=== PATIENT | male | born 1975 | race Caucasian/White ===

== ENCOUNTER 2018-01-19 07:19 | Emergency (ER) | payer OTHER ==
[~2018-01-19] VITALS: Ht 175.3 cm; Wt 90.9 kg
[2018-01-19] MEDS ORDERED: ATIVAN0.5 MG PO (07:29)
[2018-01-19] MEDS ORDERED: ADVIL 200MG TA200 MG PO (07:29)
[2018-01-19 08:07] LABS: EOS # 0.3 (0.04-0.40); EOS % 4.9 % (0.0-4.0); LYMPH# 1.6 (1.50-4.00); MEAN CELL VOLUME 89 fl (78-100); MEAN CORPUSCULAR HEMOGLOBIN 30 pg (27-31); MEAN CORPUSCULAR HGB CONC 34 g/dL (33-37); MEAN PLATELET VOLUME 10.2 fl (7.4-10.4); MONO # 0.4 (0.20-0.80); NEU # 2.8 (1.40-6.50); PLATELET COUNT 223 K/mm3 (130-400); RED BLOOD COUNT 4.97 M/mm3 (4.20-5.60); WHITE BLOOD COUNT 5.1 K/mm3 (4.8-10.8)
[2018-01-19 08:20] LABS: ALBUMIN 4.6 g/dL (3.5-5.0); BUN/CREATININE RATIO 22.7 (6.0-26.0); CALCIUM 9.5 mg/dL (8.4-10.2); POTASSIUM 4.3 mmol/L (3.6-5.0); TOTAL BILIRUBIN 0.3 mg/dL (0.2-1.3)
[2018-01-19 08:34] LABS: D-DIMER 0.1 mg/L FEU (0.15-0.50)
[2018-01-19 09:21] LABS: PH-URINE 6.5 (5.0 - 8.0); URINE APPEARANCE CLEAR; URINE BILIRUBIN NEGATIVE (NEGATIVE); URINE BLOOD NEGATIVE (NEGATIVE); URINE COLOR YELLOW; URINE GLUCOSE NEGATIVE (NEGATIVE); URINE KETONE NEGATIVE (NEGATIVE); URINE LEUKOCYTE ESTERASE NEGATIVE (NEGATIVE); URINE NITRATE NEGATIVE (NEGATIVE); URINE PROTEIN(semi-quant) NEGATIVE (NEGATIVE); URINE UROBILINOGEN NORMAL (NORMAL)
[2018-01-19 09:22] LABS: URINE WBC 0-1 /hpf (0-3)
[2018-01-19] MEDS ORDERED: GOOD NEIGHBOR M25 M1 PO (10:37)
[2018-01-19 10:53] VITALS: BP 160/94
== END 2018-01-19 10:54 | disposition home or self-care (01) ==
LOC: ED 07:19
PROVIDERS: Nurse Practitioner
DX: R42 Dizziness and giddiness (principal); F17.200 Nicotine dependence, unspecified, uncomplicated
CPT/HCPCS: J7030